=== PATIENT | male | born 1960 | race Caucasian/White ===

== ENCOUNTER 2023-07-09 22:07 | Emergency (ER) | payer OTHER, SELFPAY ==
[2023-07-09 22:12] VITALS: BP 192/103; PULSE 84; TEMP 36.5; O2SAT 100
--- NOTE | 2023-07-09 22:41 | ED_ITS ---
HPI - Skin/Abscess/Foreign Bdy General Chief complaint: Skin/Abscess/Foreign Body Stated complaint: Facial Pain Time Seen by Provider: 07/09/23 22:27 Source: patient Mode of arrival: walk-in Limitations: no limitations History of Present Illness HPI narrative: developed focal area of swelling right anterior parietal scalp last week. It enlarged today and he was seen at urgent care and prescribed Doxycycline and steroids. He took one dose of Doxycycline. Has not taken steroid yet. Tonight noticed area of swelling right neck. points to lymph nodes at right ankle of the mandible. No other area of erythema. No fever or chills. States he is concerned it may be in his blood stream and he wanted to get checked Related Data Home Medications ?Medication ?Instructions ?Recorded ?Confirmed amlodipine 5 mg tablet 5 mg PO DAILY 07/09/23 07/09/23 doxycycline hyclate 100 mg tablet 100 mg PO DAILY 07/09/23 07/09/23 ibuprofen 800 mg tablet 800 mg PO Q12H PRN pain 07/09/23 07/09/23 levothyroxine 50 mcg tablet 50 mcg PO DAILY 07/09/23 07/09/23 prednisone 20 mg tablet 20 mg PO BID 07/09/23 07/09/23 rosuvastatin 20 mg tablet 20 mg PO DAILY 07/09/23 07/09/23 Allergies Allergy/AdvReac Type Severity Reaction Status Date / Time No Known Drug Allergies Allergy Verified 07/09/23 22:18 Review of Systems 2 ROS0 Status of ROS 10 or more systems reviewed and unremark able except as noted in history and below Exam Constitutional Vital Signs, click to edit/add: Last Vital Signs Temp 97.7 F 07/09/23 22:12 Pulse 84 07/09/23 22:12 Resp 18 07/09/23 22:12 BP 192/103 H 07/09/23 22:12 Pulse Ox 100 07/09/23 22:12 O2 Del Method Room Air 07/09/23 22:12 Common normals: no apparent distress, average body habitus, oriented x3, no limitations, healthy appearing, alert and well nourished [facility] Face and sinus images: 2 1. raised area of erythema and mild tenderness 3cm 2. lymph node 2cm Eye Common normals: PERRL, EOMs intact bilaterally and conjunctivae normal Lymph Lymphatic: lymphadenopathy Respiratory Common normals: normal respiratory effort, no retractions, no use of accessory muscles and clear to auscultation bilaterally Cardio Common normals: regular rate, regular rhythm, S1 normal heart sound and S2 normal heart sound Extremity Common normals: normal to inspection and full ROM Neuro Common normals: oriented x3, CN's II-XII intact bilaterally, moves all extremities and no focal motor deficits Psych Appearance: grossly normal Course Vital Signs Vital signs: Vital Signs Temperature 97.7 F 07/09/23 22:12 Pulse Rate 84 07/09/23 22:12 Respiratory Rate 18 07/09/23 22:12 Blood Pressure 192/103 H 07/09/23 22:12 Pulse Oximetry 100 07/09/23 22:12 Oxygen Delivery Method Room Air 07/09/23 22:12 Temperature 97.7 F 07/09/23 22:12 Pulse Rate 84 07/09/23 22:12 Respiratory Rate 18 07/09/23 22:12 Blood Pressure 192/103 H 07/09/23 22:12 Pulse Oximetry 100 07/09/23 22:12 Oxygen Delivery Method Room Air 07/09/23 22:12 MDM - Skin/Abscess/Foreign Bdy MDM Narrative Medical decision making narrative: patient presents with what appears to be a focal area of cellulitis right ant. parietal scalp. ? insect bite as cause. Seen in urgent care and prescribed Doxycycline and steroid. Developed reactive lymph node right angle of mandible that concerned him and he presented fearing that infection was now in his blood stream. labs normal and patient reassured and advised to take prescribed medication and follow up with his doctor Lab Data Labs: Lab Results 07/09/23 Range/Units 22:49 WBC 7.4 (4.0-11.0) 10^3/uL RBC 5.06 (4.70-6.10) 10^6/uL Hgb 15.7 (14.0-18.0) g/dL Hct 45.4 (42.0-54.0) % MCV 89.7 (80.0-94.0) fL MCH 31.0 (25.9-34.0) pg MCHC 34.6 (29.9-35.2) g/dL RDW 11.7 (11.0-15.0) % Plt Count 196 (150-450) 10^3/uL MPV 10.3 (9.5-13.5) fL Neut % (Auto) 49.7 (43.0-75.0) % Lymph % (Auto) 34.0 (20.5-60.0) % Bell % (Auto) 10.1 (1.7-12.0) % Eos % (Auto) 5.1 (0.9-7.0) % Baso % (Auto) 0.8 (0.2-2.0) % Neut # (Auto) 3.7 (1.4-6.5) 10^3/uL Lymph # (Auto) 2.5 (1.2-3.8) 10^3/uL Bell # (Auto) 0.8 (0.3-0.8) 10^3/uL Eos # (Auto) 0.4 (0.0-0.7) 10^3/uL Baso # (Auto) 0.1 (0.0-0.1) 10^3/uL Abs Immat Gran (auto) 0.02 (0.00-0.03) 10^3/uL Imm/Tot Granulo (auto) 0.3 (0.0-0.5) % ESR 6 (<=20) mm/hr Sodium 137 (136-145) mmol/L Potassium 3.7 (3.5-5.1) mmol/L Chloride 102 (98-107) mmol/L Carbon Dioxide 26.6 (21.0-32.0) mmol/L Anion Gap 12.1 BUN 19.0 H (7.0-18.0) mg/dL Creatinine 0.97 (0.70-1.30) mg/dL Est GFR ( Amer) >60 (>=60) Est GFR (Non-Af Amer) >60 (>=60) BUN/Creatinine Ratio 19.6 Glucose 106 (74-106) mg/dL Calcium 9.0 (8.5-10.1) mg/dL C-Reactive Protein <0.50 (<=0.50) mg/dL Discharge Plan Discharge Stand Alone Forms: Portal Instructions Chief Complaint: Skin/Abscess/Foreign Body Clinical Impression: Lymphadenopathy of right cervical region, Cellulitis Patient Disposition: Home, Self-Care Prescriptions / Home Meds: No Action amlodipine 5 mg tablet 5 mg PO DAILY ibuprofen 800 mg tablet 800 mg PO Q12H PRN (Reason: pain) levothyroxine 50 mcg tablet 50 mcg PO DAILY rosuvastatin 20 mg tablet 20 mg PO DAILY prednisone 20 mg tablet 20 mg PO BID doxycycline hyclate 100 mg tablet 100 mg PO DAILY Print Language: Brazilian Instructions: Cellulitis (ED), Lymphadenopathy (ED) Additional Instructions: follow up with your doctor in next couple of days for recheck Referrals: Tony Hoang DO [Primary Care Provider] - 1 week
[2023-07-09 22:54] LABS: Basophils Absolute Auto 0.1 10^3/uL (0.0-0.1); Basophils Percent Auto 0.8 % (0.2-2.0); Eosinophils Absolute Auto 0.4 10^3/uL (0.0-0.7); Eosinophils Percent Auto 5.1 % (0.9-7.0); Hematocrit 45.4 % (42.0-54.0); Hemoglobin 15.7 g/dL (14.0-18.0); Immature Granulocytes Abs Auto 0.02 10^3/uL (0.00-0.03); Immature Granulocytes Pct Auto 0.3 % (0.0-0.5); Lymphocytes Absolute Auto 2.5 10^3/uL (1.2-3.8); Mean Corpuscular HGB Conc 34.6 g/dL (29.9-35.2); Mean Corpuscular Volume 89.7 fL (80.0-94.0); Mean Platelet Volume 10.3 fL (9.5-13.5); Monocytes Absolute Auto 0.8 10^3/uL (0.3-0.8); Monocytes Percent Auto 10.1 % (1.7-12.0); Neutrophils Absolute Auto 3.7 10^3/uL (1.4-6.5); Neutrophils Percent Auto 49.7 % (43.0-75.0); Platelet Count 196 10^3/uL (150-450); Red Blood Count 5.06 10^6/uL (4.70-6.10); Red Cell Distribution Width 11.7 % (11.0-15.0); White Blood Count 7.4 10^3/uL (4.0-11.0)
[2023-07-09 23:00] LABS: Erythrocyte Sedimentation Rate 6 mm/hr (<=20)
[2023-07-09 23:05] LABS: Anion Gap 12.1; BUN Creatinine Ratio 19.6; C Reactive Protein <0.50 mg/dL (<=0.50); Carbon Dioxide 26.6 mmol/L (21.0-32.0); Chloride 102 mmol/L (98-107); Estimated GFR (African America >60 (>=60); Estimated GFR (Non-African Ame >60 (>=60); Glucose 106 mg/dL (74-106); Potassium 3.7 mmol/L (3.5-5.1); Sodium 137 mmol/L (136-145)
--- NOTE | 2023-07-09 23:52 | PC.NURSE ---
Pt presents to ER for a swollen lymph node on the right side of his neck which caused him concern Pt was seen at urgent care today for a cellulitis like infection to the right side of his forehead believed to be caused from a bug bite pt states he was prescribed doxy and a steroid which he took one dose of but once he noticed this lump developing he became afraid that he an infection in his blood stream Pt's BP elevated on arrival, pt states he chronically has high BP and has not yet taken his meds and is nervous
== END 2023-07-09 23:58 | disposition home or self-care (01) ==
PROVIDERS: Emergency Provider Internal Medicine; PCP Family Medicine
DX: R59.0 Localized enlarged lymph nodes (principal); L03.811 Cellulitis of head [any part, except face]; Z79.899 Other long term (current) drug therapy; Z79.890 Hormone replacement therapy
CPT/HCPCS: 36415; 80048; 85025; 85652; 86140; 99283